=== PATIENT | female | born 1965 | race Caucasian/White ===

== ENCOUNTER 2022-09-03 05:49 | Day surgery (SDC) | payer BC ==
[2022-09-02 16:05] VITALS: BMI 22.1
[2022-09-03] MEDS ORDERED: Betamet Acet/Betamet Na Ph 30 MG/5 ML VIAL ONE (06:21)
[2022-09-03] MEDS ORDERED: Bacitracin Zinc Ointment 30 gm TUBE ONE (06:21)
[2022-09-03] MEDS ORDERED: Bupivacaine PF 0.5% 30 ML VIAL ONE (06:21)
[2022-09-03] MEDS ORDERED: Sodium Chloride 0.9% 100 ML ONE (06:54)
[2022-09-03] MEDS ORDERED: CEFAZOLIN 2 GM VIAL ONE (06:54)
[2022-09-03] MEDS ORDERED: Midazolam HCl 2 mg/2 ml Vial ONE (06:59)
[2022-09-03] MEDS ORDERED: PROPOFOL 200 MG/20 ML VIAL ONE (07:08)
[2022-09-03] MEDS ORDERED: ePHEDrine 50 MG/ML VIAL ONE (07:08)
[2022-09-03] MEDS ORDERED: Dexamethasone 20 MG/5 ML VIAL ONE (07:08)
[2022-09-03] MEDS ORDERED: Ondansetron PF 4 MG/2 ML Vial ONE (07:08)
[2022-09-03] MEDS ORDERED: Ketorolac Tromethamine 30 MG/ML VIAL ONE ×2 (07:08→08:04)
[2022-09-03] MEDS ORDERED: Lidocaine 1% PF 5 ML VIAL ONE (07:08)
[2022-09-03] MEDS ORDERED: Promethazine HCl 25 MG/ML VIAL ONE (07:34)
== END 2022-09-03 09:41 | disposition home or self-care (01) ==
LOC: SDC 05:49
PROVIDERS: ATTEND Orthopaedic Surgery Hand Surgery
PROC: 0RBX0ZZ Excision of Left Finger Phalangeal Joint, Open Approach (ICD-10-PCS; principal; 2022-09-03)
DX: M67.442 Ganglion, left hand (principal)
CPT/HCPCS: 88304; J0702; J1100; J1885; J2250; J2405; J2550; J2704; J3490; S0020